=== PATIENT | female | born 1955 | race Caucasian/White ===

== ENCOUNTER 2017-04-01 11:29 | Emergency (ER) | payer BC, OTHER ==
[~2017-04-01] VITALS: Ht 162.6 cm; Wt 120.0 kg
[~2017-04-01 11:29] MED LIST: 2 BP MEDS; DARV PO; SIMV5TAB32 PO
[2017-04-01 11:30] VITALS: BP 135/74; PULSE 72; RESP 20; TEMP 98.8; O2SAT 96
--- NOTE | 2017-04-01 11:35 | PD ---
Physical Exam Date Seen by Provider: April 01, 2017 Time Seen by Provider: 11:32 Narrative 61 year old female presents to the emergency department for evaluation of left flank/back pain that started 3 weeks ago. It is worse with movement. She saw her PCP, Dr. Rowley this morning, who referred her to the emergency department for possible CT scan. She is on Lortab and methocarbamol for arthritis. No urinary symptoms. Vital signs reviewed. Patient awaiting bed placement. Data Data Last Documented VS Vital Signs Date Time Temp Pulse Resp B/P Pulse Ox O2 Delivery O2 Flow Rate FiO2 04/01/17 11:30 98.8 72 20 135/74 96 MDM Supervised Visit with CARLOS: Denise Gambino April 01, 2017 11:35
[2017-04-01 12:47] LABS: BACTERIA, URINE MOD /hpf; BLOOD, URINE NEG (NEG); GLUCOSE,URINE NEG (NEG); HYALINE CAST, URINE 1 /lpf (RARE); KETONE, URINE NEG (NEG); NITRITE,URINE NEG (NEG); SQUAMOUS EPITHELIAL CELL URINE 10 /hpf (0-5); URINE COLOR YELLOW (YELLW/STRAW)
[2017-04-01] MEDS ORDERED: SIMV5TAB3 PO (12:47)
[2017-04-01 12:49] LABS: COMMENT (UR) CULTURE INDICATED; CULTURE IF INDICATED CULTURE INDICATED
[2017-04-01] MEDS ORDERED: LOSA25TA PO (12:50)
[2017-04-01] MEDS ORDERED: METH500T3 PO (12:50)
[2017-04-01] MEDS ORDERED: THYR1TAB24 PO (12:50)
[2017-04-01] MEDS ORDERED: BENA5TAB PO (12:50)
[2017-04-01] MEDS ORDERED: HYDR-3534 PO (12:50)
[2017-04-01] MEDS ORDERED: oxyCODONE/ACETAMINOPHEN 5 MG/325 MG TAB PO ONE (13:00)
--- NOTE | 2017-04-01 13:08 | PD ---
HPI Chief Complaint: Back/ Neck Pain or Injury Time Seen by Provider: 13:08 Travel History International Travel<30 days: No Contact w/Intl Traveler<30days: No Traveled to known affect area: No History of Present Illness HPI 61-year-old female with a history of hypertension, hyperlipidemia, hypothyroidism, rheumatoid arthritis presents to the emergency department for evaluation of left-sided low back pain for 2 weeks. Denies any injury or trauma to her back. Describes the pain as a sharp pain. Aggravated with walking and sitting for long period of time. States that she can lie in a certain position that will alleviate the pain. It does shoot down to the left hip and leg occasionally. She denies any fever, chills, nausea, vomiting, numbness or tingling, weakness, saddle anesthesia, bowel or bladder incontinence , abdominal pain, dysuria, hematuria. States that she saw her PCP this morning about this pain and was told to come to the emergency department as she may need a CT scan to rule out kidney stones. The patient does have a history of lumbar spine surgery when she was 15 years old. She takes Lortab 5325 mg twice daily for joint pain secondary to her rheumatoid arthritis, has not taken anything for pain yet today. No other complaints. PFSH Past Medical History Arthritis: Yes Heart Rhythm Problems: No Cardiac Catheterization: No Cardiovascular Problems: No High Cholesterol: Yes Congestive Heart Failure: No Diabetes: Yes Patient Takes Glucophage: No GERD: Yes Hypertension: Yes Migraines: Yes Myocardial Infarction: No Thyroid Disease: Yes ?: Not Past Surgical History Coronary Artery Bypass Graft: No Social History Alcohol Use: No Tobacco Use: No Substance Use: No Allergies-Medications (Allergen,Severity, Reaction): Coded Allergies: Codeine (Verified Allergy, Severe, 08/02/10) Penicillin (Verified Allergy, Severe, 08/02/10) Reported Meds & Prescriptions Reported Meds & Active Scripts Active Reported Methocarbamol 500 Mg Tab 500 Mg PO BID Benazepril (Benazepril HCl) 5 Mg Tab Unknown Dose PO DAILY Losartan (Losartan Potassium) 25 Mg Tab Unknown Dose PO DAILY Thyroid 65 Mg Tab Unknown Dose PO DAILY Lortab (Hydrocodone-Acetaminophen) 7.5-325 Mg Tab 1 Tab PO BID Simvastatin 5 Mg Tab 5 Mg PO HS Review of Systems Except as stated in HPI: all other systems reviewed are Neg Physical Exam Narrative GENERAL: Obese female patient in no acute distress who is nontoxic appearing. SKIN: Warm and dry. HEAD: Normocephalic and atraumatic. EYES: No injection, drainage, or hyphema noted. PERRLA. EOMI. ENT: No nasal drainage noted. Oropharynx is clear. NECK: Supple and the trachea is midline. CARDIOVASCULAR: Regular rate and rhythm. RESPIRATORY: Breath sounds are equal bilaterally with no accessory muscle use, wheezing, rhonchi, or crackles. GASTROINTESTINAL: Abdomen is soft, non-tender, and nondistended. MUSCULOSKELETAL: No obvious deformities, swelling, cyanosis, or ecchymosis is present throughout the upper and lower extremities. Patient has full range of motion without any signs of neurovascular compromise. Strength 5/5 upper and lower extremities equal bilaterally. Left leg SLR positive. BACK: Tenderness to palpation over midline lumbar spine and left lumbar paraspinal muscles. No obvious deformities or crepitus noted throughout the thoracic and lumbar vertebrae. NEUROLOGICAL: Awake, alert, and oriented. Normal speech and gait. Cranial nerves are grossly intact. Data Data Last Documented VS Vital Signs Date Time Temp Pulse Resp B/P Pulse Ox O2 Delivery O2 Flow Rate FiO2 04/01/17 11:30 98.8 72 20 135/74 96 Orders Urinalysis - C+S If Indicated (04/01/17 11:36) Urine Culture (04/01/17 11:39) Ct Abd/Pel W/O Iv Contrast (04/01/17 12:47) Ct Lumb Spine W/O Contrast (04/01/17 12:47) Oxycodone-Acetamin 5-325 Mg (Percocet (04/01/17 13:00) Labs Laboratory Tests Test 04/01/17 11:39 Urine Color YELLOW Urine Turbidity CLOUDY Urine pH 6.0 Urine Specific [place] 1.015 Urine Protein TRACE mg/dL Urine Glucose (UA) NEG mg/dL Urine Ketones NEG mg/dL Urine Occult Blood NEG Urine Nitrite NEG Urine Bilirubin NEG Urine Urobilinogen LESS THAN 2.0 MG/DL Urine Leukocyte Esterase TRACE Urine RBC 2 /hpf Urine WBC 9 /hpf Urine Squamous Epithelial 10 /hpf Cells Urine Bacteria MOD /hpf Urine Hyaline Casts 1 /lpf Microscopic Urinalysis Comment CULTURE INDICATED MDM Medical Decision Making Medical Screen Exam Complete: Yes Emergency Medical Condition: Yes Differential Diagnosis Sciatica versus lumbar radiculopathy versus degenerative disc disease versus fracture versus kidney stone unlikely Narrative Course 61-year-old female presents to the emergency department for evaluation of left lower back pain for 2 weeks. Patient is afebrile, vital signs are stable. No focal neurologic deficits. No traumatic injury. She was sent here by her PCP for imaging. Urinalysis shows trace leukocyte esterase, 9 white blood cells, moderate bacteria. CTs of the abdomen and pelvis and lumbar spine have been ordered and are pending. CT of the abdomen and pelvis shows scattered diverticulosis, no renal calculi or hydronephrosis. No acute abnormalities. CT of the lumbar spine is negative for any acute abnormalities or fracture. Prominent sclerosis along the implants of L2 to L3 could be reactive degenerative changes, multilevel degenerative changes and posterior disc osteophyte, protrusions noted. Urine shows some bacteria consistent with UTI. I discussed all findings with the patient. I discussed with her that she does have a slight urinary tract infection however I do not believe this is the cause of her pain. She'll be treated with Keflex for urinary tract infection. She has degenerative changes in her lumbar spine that is likely the etiology of her back pain. She'll be discharged with prednisone and extra Lortab so that she can take it every 6 hours as needed rather than every 12 hours. Discussed with her that she will need to follow-up with her PCP. Verbalizes understanding and agreement with treatment plan. I discussed the case with my attending physician Dr. Gaxiola who is aware of the patients history, physical examination findings, and treatment plan. Diagnosis Primary Impression: Acute low back pain Qualified Code: M54.42 - Acute left-sided low back pain with left-sided sciatica Additional Impression: UTI (urinary tract infection) Qualified Code: N39.0 - Urinary tract infection without hematuria, site unspecified Referrals: Primary Care Physician Patient Instructions: Acute Low Back Pain (ED), General Instructions, Urinary Tract Infection in Women (ED) Additional Instructions: Apple ice or heat to help alleviate symptoms. Take medications as prescribed. Follow-up with your Primary Care Physician. Return to the ED for any acute worsening of symptoms. Med/Other Pt SpecificInfo: Prescription(s) given Scripts Prednisone 20 Mg Tab20 Mg PO BID 5 Days Ref 0 Prov:Kenneth Gaxiola MD 04/01/17 Hydrocodone-Acetaminophen (Lortab)5-325 Mg Tab1 Tab PO Q6H PRN (PAIN GREATER THAN 6) #12 TAB Ref 0 Prov:Kenneth Gaxiola MD 04/01/17 Disposition: 01 DISCHARGE HOME Condition: Stable Keri Brown April 01, 2017 13:08
--- NOTE | 2017-04-01 13:40 | RADRPT ---
EXAM DATE/TIME: 04/01/2017 13:09 [facility] COMPARISON: No previous studies available for comparison. INDICATIONS : Evaluate for calculi; low back/flank pain. ORAL CONTRAST: No oral contrast ingested. RADIATION DOSE: 31.02 CTDIvol (mGy) MEDICAL HISTORY : Hypertension. Diabetes mellitus type 2. SURGICAL HISTORY : Left carpel tunnel sx, Right heal spur sx. ENCOUNTER: Initial ACUITY: 3 weeks PAIN SCALE: 8/10 LOCATION: Left lower back region. TECHNIQUE: Volumetric scanning of the abdomen and pelvis was performed. Using automated exposure control and ad justment of the mA and/or kV according to patient size, radiation dose was kept as low as reasonably achievable to obtain optimal diagnostic quality images. FINDINGS: LOWER LUNGS: The visualized lower lungs are clear. LIVER: Homogeneous density without lesion. There is no dilation of the biliary tree. No calcified gallston es. SPLEEN: Normal size without lesion. PANCREAS: Within normal limits. KIDNEYS: Normal in size and shape. There is no mass, stone, or hydronephrosis. ADRENAL GLANDS: Within normal limits. VASCULAR: There is no aortic aneurysm. BOWEL/MESENTERY: Scattered diverticulosis without diverticulitis. There is no free intraperitoneal air or fluid. ABDOMINAL WALL: Within normal limits. RETROPERITONEUM: There is no lymphadenopathy. BLADDER: No wall thickening or mass. REPRODUCTIVE: Within normal limits. INGUINAL: There is no lymphadenopathy or hernia. MUSCULOSKELETAL: Degenerative changes of the lumbar spine. CONCLUSION: 1. Scattered diverticulosis. 2. No renal calculi or hydronephrosis. Jaylan Rendon MD on April 01, 2017 at 13:33 Board Certified Radiologist. This report was verified electronically.
--- NOTE | 2017-04-01 13:49 | RADRPT ---
EXAM DATE/TIME: 04/01/2017 13:14 [facility] COMPARISON: No previous studies available for comparison. INDICATIONS : Low back pain for three weeks. RADIATION DOSE: 47.82 CTDIvol (mGy) MEDICAL HISTORY : Hypertension. Diabetes mellitus type 2. SURGICAL HISTORY : Left carpel tunnel sx, right heel sx. ENCOUNTER: Initial ACUITY: 3 weeks PAIN SCALE: 8/10 LOCATION: Left lower back region. TECHNIQUE: Volumetric scanning of the lumbar spine was performed. Multiplanar reconstructions in the sagittal, coronal and oblique axial planes were performed. Using automated exposure control and adjustment of the mA and/or kV according to patient size, radiation dose was kept as low as reasonably achievable t o obtain optimal diagnostic quality images. FINDINGS: VERTEBRAE: Normal vertebral body height. Prominent sclerosis along the endplates at L2-3 and to a lesser degree L3-4. Multilevel degenerative changes. No fracture seen. Right-sided protrusion at T11-12 narrows the right neural foramen. No canal stenosis. ALIGNMENT: Minimal retrolisthesis L2 on L3. T12-L1: The thecal sac has a normal diameter. No evidence of disc bulge or protrusion. The neural foramina are patent bilaterally. L1-L2: The thecal sac has a normal diameter. No evidence of disc bulge or protrusion. The neural foramina are patent bilaterally. L2-L3: Minimal retrolisthesis and mild broad-based posterior disc osteophyte complex. Mild canal stenosis. The neural foramina are patent bilaterally. L3-L4: Broad-based posterior disc osteophyte complex causes mild canal stenosis. The neural foramina are pa tent bilaterally. L4-L5: Mild broad-based disc bulge without canal stenosis. The neural foramina are patent bilaterally. L5-S1: Broad-based protrusion more eccentric to the left abuts the thecal sac. Mild canal stenosis. The joe ral foramina are patent bilaterally. Mild arthropathy. CONCLUSION: 1. No fracture. 2. Prominent sclerosis along the endplates at L2-3 could be reactive degenerative changes. 3. Multilevel degenerative changes and posterior disc osteophyte complex/protrusions as described abo ve. Jaylan Rendon MD on April 01, 2017 at 13:43 Board Certified Radiologist. This report was verified electronically.
[2017-04-01] MEDS ORDERED: PRED20 PO (14:01)
[2017-04-01] MEDS ORDERED: HYDR-3533 PO (14:01)
[2017-04-01] MEDS ORDERED: CEPH-460 PO (14:07)
== END 2017-04-01 14:38 | disposition home or self-care (01) ==
LOC: NEPD 11:29
DX: M54.42 Lumbago with sciatica, left side (principal); N39.0 Urinary tract infection, site not specified; B96.89 Other specified bacterial agents as the cause of diseases classified elsewhere
CPT/HCPCS: 72131; 74176; 81001; 87086

== ENCOUNTER 2018-01-03 13:17 | Emergency (ER) | payer OTHER ==
[~2018-01-03] VITALS: Ht 162.6 cm; Wt 115.0 kg
[~2018-01-03 13:17] MED LIST changes: -2 BP MEDS; +BENA5TAB PO; +CEPH-460 PO; -DARV PO; +HYDR-3533 PO; +HYDR-3534 PO; +LOSA25TA PO; +METH500T3 PO; +PRED20 PO; +SIMV5TAB3 PO; -SIMV5TAB32 PO; +THYR1TAB24 PO
[2018-01-03 13:19] VITALS: BP 188/93; PULSE 69; RESP 16; TEMP 98.6; O2SAT 99
[2018-01-03] MEDS ORDERED: PRED10PA2 PO (15:05)
[2018-01-03] MEDS ORDERED: PROMSYP3 PO (15:05)
[2018-01-03] MEDS ORDERED: VENTAER INH (15:05)
--- NOTE | 2018-01-03 15:06 | PD ---
HPI . Cough and congestion Chief Complaint: Cold / Flu Symptoms Time Seen by Provider: 14:18 Travel History International Travel<30 days: No Contact w/Intl Traveler<30days: No Traveled to known affect area: No History of Present Illness HPI This patient presents with a 1.5 week history of cough and chest congestion. She denies any fever or purulent sputum. She denies any nausea or vomiting. She has taken Tylenol Cold and Mucinex mucus and cold without relief of her symptoms. She denies any significant long history of such as asthma or emphysema. She has not noted any modifying factors. PFSH Past Medical History Arthritis: Yes Heart Rhythm Problems: No Cardiac Catheterization: No Cardiovascular Problems: No High Cholesterol: Yes Congestive Heart Failure: No Diabetes: Yes GERD: Yes Hypertension: Yes Migraines: Yes Myocardial Infarction: No Thyroid Disease: Yes ?: Not Past Surgical History Coronary Artery Bypass Graft: No Social History Alcohol Use: No Tobacco Use: No Substance Use: No Allergies-Medications (Allergen,Severity, Reaction): Coded Allergies: codeine (Unverified Allergy, Severe, 01/03/18) penicillin G (Unverified Allergy, Severe, 01/03/18) Reported Meds & Prescriptions Reported Meds & Active Scripts Active Keflex (Cephalexin) 500 Mg Cap 500 Mg PO Q12H 7 Days Prednisone 20 Mg Tab 20 Mg PO BID 5 Days Lortab (Hydrocodone-Acetaminophen) 5-325 Mg Tab 1 Tab PO Q6H PRN Reported Methocarbamol 500 Mg Tab 500 Mg PO BID Benazepril (Benazepril HCl) 5 Mg Tab Unknown Dose PO DAILY Losartan (Losartan Potassium) 25 Mg Tab Unknown Dose PO DAILY Thyroid 65 Mg Tab Unknown Dose PO DAILY Lortab (Hydrocodone-Acetaminophen) 7.5-325 Mg Tab 1 Tab PO BID Simvastatin 5 Mg Tab 5 Mg PO HS Review of Systems Except as stated in HPI: all other systems reviewed are Neg General / Constitutional: No: Fever, Chills Respiratory: Positive: Cough, Shortness of Breath, Wheezing Gastrointestinal: No: Nausea, Vomiting, Diarrhea Physical Exam Narrative GENERAL: Awake and alert and in no acute distress. SKIN: Warm and dry. HEAD: Normocephalic/atraumatic. EYES: Pupils are equal. Extraocular movements are intact. NECK: Normal range of motion. CARDIOVASCULAR: Regular rate and rhythm. RESPIRATORY: Nonlabored respirations. Diffuse coarse expiratory wheezing. Good air movement. MUSCULOSKELETAL: Atraumatic. NEUROLOGICAL: Nonfocal. PSYCHIATRIC: Appropriate mood and affect. Data Data Last Documented VS Vital Signs Date Time Temp Pulse Resp B/P (MAP) Pulse Ox O2 Delivery O2 Flow Rate FiO2 01/03/18 13:19 98.6 69 16 188/93 (124) 99 Orders Orders Duoneb Q15min X3 (01/03/18 15:00) MDM Medical Decision Making Medical Screen Exam Complete: Yes Emergency Medical Condition: Yes Differential Diagnosis Differential diagnosis includes but is not limited to viral respiratory illness , bronchitis, pneumonia, allergies, CHF, asthma/COPD. Narrative Course This patient presents with cough and chest congestion for a week and a half. She has bronchitis on exam. I will treat her here with nebs and then discharge her to home with steroids, albuterol MDI and cough syrup. Diagnosis Primary Impression: Bronchitis Patient Instructions: Acute Bronchitis (DC), General Instructions Med/Other Pt SpecificInfo: Prescription(s) given Scripts Dextromethorphan-Promethazine Liq (Promethazine-Dextromethorphan Liq) 6.25-15 Mg /5 Ml Syrp 10 ML PO Q6HR for cough, #180 Prov: Mildred Terry MD 01/03/18 Albuterol 18 GM Inh (Ventolin Hfa 18 GM Inh) 90 Mcg/Act Aer 2 PUFF INH Q4H Y for SHORTNESS OF BREATH, #1 INHALER 0 Refills Prov: Mildred Terry MD 01/03/18 Prednisone (48) 10 mg tab Dose Pack (Prednisone (48) 10 mg tab Dose Pack) 10 Mg Dspk 10 MG PO DIRECTED for Inflammation, #1 DSPK 0 Refills Prov: Mildred Terry MD 01/03/18 Disposition: 01 DISCHARGE HOME Condition: Stable Mildred Terry MD Jan 03, 2018 15:06
[2018-01-03] MEDS: RESP: ALBUTEROL 2.5 MG/IPRATROPIUM 0.5 MG NEB (SCH) INH (15:11)
== END 2018-01-03 16:08 | disposition home or self-care (01) ==
LOC: NEPD 13:17
DX: J40 Bronchitis, not specified as acute or chronic (principal); M19.90 Unspecified osteoarthritis, unspecified site; E78.00 Pure hypercholesterolemia, unspecified; E11.9 Type 2 diabetes mellitus without complications; K21.9 Gastro-esophageal reflux disease without esophagitis; I10 Essential (primary) hypertension; Z88.5 Allergy status to narcotic agent; Z88.0 Allergy status to penicillin; Z79.899 Other long term (current) drug therapy
CPT/HCPCS: 94640; 94664; 99283